=== PATIENT | male | born 1985 | race Caucasian/White ===

== ENCOUNTER 2017-11-07 08:08 | Observation (INO) | payer OTHER ==
[2017-11-07] MEDS ORDERED: Vistaril 50 MG/ML IM ONE (08:24)
[2017-11-07] MEDS ORDERED: Lactated Ringers 1,000 ML IV ONE ×4 (08:25→10:06)
[2017-11-07 08:47] LABS: VBG BASE EXCESS 0.5 (-2.0-2.0); VBG O2 SATURATION 78.7 (95-100); VBG POTASSIUM 3.4 (3.5-5.1); VBG pH 7.38 (7.32-7.42)
[2017-11-07 09:03] LABS: BASOPHIL % 0.2 % (0.0-0.4); Basophil (Absolute #) 0.02 (0-0.4); Eosinophil % 1.5 % (0.00-5.0); Eosinophil (Absolute #) 0.17 (0-0.5); Granulocyte Absolute (ANC) 9.21 (1.4-6.9); Granulocytes % 79.2 % (36.0-66.0); Hematocrit 38.1 % (42-50); Hemoglobin 13.3 gm/dl (12.5-18.0); Lymphocyte (Absolute #) 1.57 (1.0-4.6); Lymphocytes % 13.5 % (24.0-44.0); Mean Cell Volume 83.9 fl (78-100); Mean Corpuscular Hemoglobin 29.3 pg (26-32); Mean Corpuscular Hgb Concent. 34.9 g/dl (32-36); Mean Platelet Volume 9.6 fl (6-9.5); Monocyte (Absolute #) 0.65 (0.0-1.3); Monocytes % 5.6 % (0.0-12.0); Platelet Count 267 K/mm3 (150-450); Red Blood Count 4.54 M/mm3 (4.1-5.6); Red Cell Distribution Width 12.5 % (11.5-14.0); White Blood Count 11.6 K/mm3 (4.0-10.5)
[2017-11-07] MEDS ORDERED: VISTARIL 100MG/2ML IM ONE (09:09)
[2017-11-07 09:28] LABS: ALBUMIN 4.7 g/dl (3.5-5.0); ALKALINE PHOSPHATASE 116 U/L (38-126); ANION GAP 16.8 MEQ/L; BLOOD UREA NITROGEN 20 mg/dl (9-20); CHLORIDE 104 mEq/L (98-107); CK-Creatinine Phosphokinase 377 U/L (55-170); Calcium 9.5 mg/dl (8.4-10.2); Carbon Dioxide 24 mmol/L (22-30); Creatinine 1 0.59 mg/dl (0.66-1.25); Glucose 147 mg/dL (74-106); Potassium 3.6 mmol/L (3.5-5.1); SGOT/AST 70 U/L (17-59); SGPT/ALT 29 U/L (0-50); SODIUM 141 mmol/L (137-145); Total Protein 7.8 mg/dl (6.3-8.2)
[2017-11-07 09:29] LABS: SALICYLATE < 1.0 mg/dl (20-30)
[2017-11-07 09:35] LABS: ACETAMINOPHEN < 10 ug/ml (10-30); ETHYL ALCOHOL < 10 MG/DL (10-50)
[2017-11-07] MEDS ORDERED: Ativan 2 MG/1 ML VIAL ONE ×2 (09:49→10:17)
[2017-11-07] MEDS ORDERED: Ativan 2 MG/1 ML VIAL IV ONE ×2 (09:49→10:15)
[2017-11-07] MEDS ORDERED: Geodon 20 MG INJ IM ONE ×2 (10:14→10:17)
--- NOTE | 2017-11-07 10:28 | ERPHSYRPT ---
- History of Present Illness Time Seen by Provider: 11/07/17 08:13 Source: patient, police Patient Subjective Stated Complaint: ISP brought patient to ED for medical clearance, patient is anxious, agitated, moving constantly, speaking fast Triage Nursing Assessment: pt to er with ISP dominicgloria, here for medical clearance , pt is agitated, anxiuos, constantly moving around in the bed, answers questions appropriately but with quick short sentences, speech rushed Physician History: CC: medical evaluation for police HX: 32 y/o patient of Dr Solis reports he takes buprenorphine, adderall, and paxil. He arrived at a police scene in dry pan feeder hours and appeared to be intoxicated. He denies overdose. He denies acts or thoughts of self harm. Police concerned as he appeared to be intoxicated. Pt denies other symptoms. 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 Timing/Duration: today Severity: moderate Allergies/Adverse Reactions: lidocaine Allergy (Unknown, Verified 11/07/17 08:22) Hives Home Medications: Buprenorphine HCl/Naloxone HCl [Buprenorphin-Naloxon 8-2 mg Sl] 11/07/17 [ History] Dextroamphetamine/Amphetamine [Adderall 10 mg Tablet] 11/07/17 [History] Paroxetine HCl [Paxil] 11/07/17 [History] Hx Tetanus, Diphtheria Vaccination/Date Given: No Hx Influenza Vaccination/Date Given: No Hx Pneumococcal Vaccination/Date Given: No Immunizations Up to Date: No - Review of Systems Constitutional: No Fever, No Chills Eyes: No Symptoms Ears, Nose, & Throat: Nose Congestion Respiratory: No Cough, No Dyspnea Cardiac: No Chest Pain, No Syncope Abdominal/Gastrointestinal: No Abdominal Pain, No Nausea, No Vomiting, No Diarrhea Genitourinary Symptoms: No Dysuria Skin: No Rash Neurological: No Focal Weakness, No Headache, No Parasthesia Psychological: No Suicidal Ideations All Other Systems: Reviewed and Negative - Past Medical History Neurological History: No Pertinent History ENT History: No Pertinent History Cardiac History: No Pertinent History Respiratory History: No Pertinent History Endocrine Medical History: No Pertinent History Musculoskeletal History: No Pertinent History GI Medical History: No Pertinent History History: No Pertinent History Psycho-Social History: Anxiety, Attention Deficit Disorder, Depression, Other Male Reproductive Disorders: No Pertinent History Other Medical History: hx of opioid addiction, currently prescribed bupenorphine - Past Surgical History Past Surgical History: No - Social History Smoking Status: Current every day smoker How long have you smoked: years Exposure to second hand smoke: Yes Drug Use: narcotics Patient Lives Alone: Yes - Nursing Vital Signs Nursing Vital Signs: Initial Vital Signs Temperature 98.2 F 11/07/17 08:13 Pulse Rate 122 H 11/07/17 08:13 Respiratory Rate 26 H 11/07/17 08:13 Blood Pressure 212/120 11/07/17 08:13 O2 Sat by Pulse Oximetry 98 11/07/17 08:13 Pain Scale Pain Intensity 0 - Physical Exam General Appearance: alert, other (arrived ambulatory, anxious affect, jittery, oriented) Eye Exam: PERRL/EOMI Ears, Nose, Throat Exam: moist mucous membranes, other (nasal congestion) Neck Exam: normal inspection, non-tender, supple Respiratory Exam: normal breath sounds Cardiovascular Exam: regular rate/rhythm, tachycardia, No murmur Gastrointestinal/Abdomen Exam: soft, No tenderness, No distention Back Exam: normal inspection Extremity Exam: normal inspection, normal range of motion Neurologic Exam: alert, oriented x 3, pitch worker II-XII nml as tested, sensation nml, other (anxious, intermittently rapid speech, oriented and answers all questions appropriately), No motor deficits Skin Exam: warm, dry, No rash SpO2 Interpretation: normal SpO2: 98 Oxygen Delivery: Room Air - Course Nursing assessment & vital signs reviewed: Yes EKG Interpreted by Me: RATE (97), Sinus Rhythm, NORMAL AXIS, NORMAL INTERVALS ( QTc 450), Right Bundle Branch Block (incomplete), Non-specific ST Changes - Radiology Exams cxr X-ray Interpretation: Teleradiologist Report (nonacute hyperinflated chest) Ordered Tests: Active Orders 24 hr Category Date Time Status Health Social Work Professor STAT Care 11/07/17 08:24 Active EKG-ER Only STAT Care 11/07/17 08:24 Active Good [Catheter-Kenney Good] STAT Care 11/07/17 11:31 Active IV Insertion STAT Care 11/07/17 08:24 Active Pulse Oximetry (ED) STAT Care 11/07/17 08:24 Active ACETAMINOPHEN Stat Lab 11/07/17 08:45 Completed CBC W DIFF Stat Lab 11/07/17 08:45 Completed CK-Creatinine Phosphokinase Stat Lab 11/07/17 08:45 Completed CMP Stat Lab 11/07/17 08:45 Completed ETHYL ALCOHOL Stat Lab 11/07/17 08:45 Completed SALICYLATE Stat Lab 11/07/17 08:45 Completed TROPONIN Q3H Lab 11/07/17 09:30 Completed TROPONIN Q3H Lab 11/07/17 12:30 Ordered TROPONIN Q3H Lab 11/07/17 15:30 Ordered TROPONIN Q3H Lab 11/07/17 18:30 Ordered TROPONIN Q3H Lab 11/07/17 21:30 Ordered UA W/RFX UR CULTURE Stat Lab 11/07/17 08:24 Ordered Urine Triage Profile Stat Lab 11/07/17 08:24 Ordered VENOUS BLOOD GAS Stat Lab 11/07/17 08:24 Completed Medication Summary Discontinued Medications Generic Name Dose Route Start Last Admin Trade Name Freq PRN Reason Stop Dose Admin Hydroxyzine HCl 50 mg 11/07/17 08:24 11/07/17 09:58 Vistaril 50 Mg/Ml IM 11/07/17 08:25 Not Given STAT ONE Hydroxyzine HCl Confirm 11/07/17 09:09 Vistaril 100mg/2ml Administered 11/07/17 09:10 Dose 100 mg IM .STK-MED ONE Lactated Ringer's 1,000 mls @ 999 mls/hr 11/07/17 08:25 11/07/17 09:55 Lactated Ringers IV 11/07/17 09:25 999 mls/hr .Q1H1M ONE Administration Lactated Ringer's Confirm 11/07/17 08:57 Lactated Ringers Administered 11/07/17 08:58 Dose 1,000 mls @ ud IV .STK-MED ONE Lactated Ringer's 1,000 mls @ 999 mls/hr 11/07/17 10:04 11/07/17 10:08 Lactated Ringers IV 11/07/17 11:04 999 mls/hr .Q1H1M ONE Administration Lactated Ringer's Confirm 11/07/17 10:06 Lactated Ringers Administered 11/07/17 10:07 Dose 1,000 mls @ ud IV .STK-MED ONE Lorazepam 2 mg 11/07/17 09:49 11/07/17 09:51 Ativan 2 Mg/1 Ml Vial IV 11/07/17 09:50 2 mg STAT ONE Administration Lorazepam Confirm 11/07/17 09:49 Ativan 2 Mg/1 Ml Vial Administered 11/07/17 09:50 Dose 2 mg .ROUTE .STK-MED ONE Lorazepam 2 mg 11/07/17 10:15 11/07/17 10:28 Ativan 2 Mg/1 Ml Vial IV 11/07/17 10:16 2 mg STAT ONE Administration Lorazepam Confirm 11/07/17 10:17 Ativan 2 Mg/1 Ml Vial Administered 11/07/17 10:18 Dose 2 mg .ROUTE .STK-MED ONE Ziprasidone 10 mg 11/07/17 10:14 11/07/17 10:27 Geodon 20 Mg Inj IM 11/07/17 10:15 10 mg STAT ONE Administration Ziprasidone Confirm 11/07/17 10:17 Geodon 20 Mg Inj Administered 11/07/17 10:18 Dose 20 mg IM .STK-MED ONE Lab/Rad Data: Laboratory Result Diagrams 11/07/17 08:45 11/07/17 08:45 Laboratory Results 11/07/17 11/07/17 11/07/17 Range/Units 09:30 08:45 08:45 WBC 11.6 H (4.0-10.5) K/mm3 RBC 4.54 (4.1-5.6) M/mm3 Hgb 13.3 (12.5-18.0) gm/dl Hct 38.1 L (42-50) % MCV 83.9 (78-100) fl MCH 29.3 (26-32) pg MCHC 34.9 (32-36) g/dl RDW 12.5 (11.5-14.0) % Plt Count 267 (150-450) K/mm3 MPV 9.6 H (6-9.5) fl Gran % 79.2 H (36.0-66.0) % Lymphocytes % 13.5 L (24.0-44.0) % Monocytes % 5.6 (0.0-12.0) % Eosinophils % 1.5 (0.00-5.0) % Basophils % 0.2 (0.0-0.4) % Basophils # 0.02 (0-0.4) VBG pH (7.32-7.42) VBG pCO2 at Pat Temp (42-55) mm/Hg VBG pO2 at Pat Temp (25-40) mm/Hg VBG HCO3 (22-28) meq/L VBG O2 Sat (Ike) (95-100) VBG Base Excess (-2.0-2.0) VBG Hemoglobin VBG Carboxyhemoglobin (0.0-6.9) % T HGB POC Potassium (3.5-5.1) Sodium 141 (137-145) mmol/L Potassium 3.6 (3.5-5.1) mmol/L Chloride 104 (98-107) mEq/L Carbon Dioxide 24 (22-30) mmol/L Anion Gap 16.8 MEQ/L BUN 20 (9-20) mg/dl Creatinine 0.59 L (0.66-1.25) mg/dl Estimated GFR > 60 ML/MIN Glucose 147 H (74-106) mg/dL Calcium 9.5 (8.4-10.2) mg/dl Total Bilirubin 0.40 (0.2-1.3) mg/d? AST 70 H (17-59) U/L ALT 29 (0-50) U/L Alkaline Phosphatase 116 (38-126) U/L Creatine Kinase 377 H (55-170) U/L Troponin I < 0.012 (0.000-0.034) ng/ml Serum Total Protein 7.8 (6.3-8.2) mg/dl Albumin 4.7 (3.5-5.0) g/dl Salicylates < 1.0 L* (20-30) mg/dl Acetaminophen < 10 L (10-30) ug/ml Ethyl Alcohol < 10 L (10-50) MG/DL 11/07/17 Range/Units 08:24 WBC (4.0-10.5) K/mm3 RBC (4.1-5.6) M/mm3 Hgb (12.5-18.0) gm/dl Hct (42-50) % MCV (78-100) fl MCH (26-32) pg MCHC (32-36) g/dl RDW (11.5-14.0) % Plt Count (150-450) K/mm3 MPV (6-9.5) fl Gran % (36.0-66.0) % Lymphocytes % (24.0-44.0) % Monocytes % (0.0-12.0) % Eosinophils % (0.00-5.0) % Basophils % (0.0-0.4) % Basophils # (0-0.4) VBG pH 7.38 (7.32-7.42) VBG pCO2 at Pat Temp 44 (42-55) mm/Hg VBG pO2 at Pat Temp 38 (25-40) mm/Hg VBG HCO3 26.0 (22-28) meq/L VBG O2 Sat (Ike) 78.7 L (95-100) VBG Base Excess 0.5 (-2.0-2.0) VBG Hemoglobin 14.0 VBG Carboxyhemoglobin 2.0 (0.0-6.9) % T HGB POC Potassium 3.4 L (3.5-5.1) Sodium (137-145) mmol/L Potassium (3.5-5.1) mmol/L Chloride (98-107) mEq/L Carbon Dioxide (22-30) mmol/L Anion Gap MEQ/L BUN (9-20) mg/dl Creatinine (0.66-1.25) mg/dl Estimated GFR ML/MIN Glucose (74-106) mg/dL Calcium (8.4-10.2) mg/dl Total Bilirubin (0.2-1.3) mg/d? AST (17-59) U/L ALT (0-50) U/L Alkaline Phosphatase (38-126) U/L Creatine Kinase (55-170) U/L Troponin I (0.000-0.034) ng/ml Serum Total Protein (6.3-8.2) mg/dl Albumin (3.5-5.0) g/dl Salicylates (20-30) mg/dl Acetaminophen (10-30) ug/ml Ethyl Alcohol (10-50) MG/DL - Progress Progress Note: 11/07/17 10:28 He has been unable to produce urine. Nurses attempted cath without success. He is more tachycardic, hypertensive, and agitated. IV ativan and geodon and IVF given. He appears to have sympathomimetic intoxication/ingestion. 11/07/17 11:32 Pt more and more agitated. Hypertensive, tachycardic. Not febrile. Answers all questions. Some myotonic jerks. He has copious nasal secretions. He was given ativan X 2 and IM geodon. 2 L LR given. Good placed to make sure not in urine retention. Police placed on 24 hour immediate retirement. He is now sedate. On pulse ox, capnography, and classroom monitor. Called Dr Solis who will place in ICU observation. He appears to have substance overdose and possibly some degree of opioid withdrawal although he states he took his normal buprenorphine at 6AM today. Discussed with Dr.: Will Will see patient in: hospital (observation) Counseled pt/family regarding: drug and/or alcohol abuse, lab results, diagnosis , need for follow-up, rad results - Departure Time of Disposition: 11:35 Departure Disposition: Observation (ICU Dr Solis) Clinical Impression: Overdose of sympathomimetic agent, Opioid withdrawal, acute delerium Condition: Serious Critical Care Time: Yes Critical Care Time(excluding separately billable procedures): 30-74 minutes Referrals: GO SOLIS [Primary Care Provider] -
[2017-11-07 13:16] LABS: Appearance CLEAR (CLEAR); Bacteria FEW /HPF (NEGATIVE); Bilirubin NEGATIVE (NEGATIVE); Blood NEGATIVE Ery/ul (0-5); Glucose 100 mg/dL (NEGATIVE); Ketones SMALL (NEGATIVE); Leukocyte Esterase TRACE (NEGATIVE); Mucus MODERATE /HPF (NEGATIVE); Nitrite NEGATIVE (NEGATIVE); Protein,Urine Dip NEGATIVE (Negative); Urobilinogen NORMAL mg/dL (0-1); WBC 0-2 /HPF (0-5)
[2017-11-07] MEDS: Dextrose 5%-Lr IV Solution 1000 ML 1,000 ML IV SCH ×2 (13:18→21:41)
[2017-11-07] MEDS ORDERED: Ativan 2 MG/1 ML VIAL IV PRN (14:57)
[2017-11-07] MEDS ORDERED: TYLENOL 325 MG PO PRN (14:57)
[2017-11-07 15:29] LABS: Amphetamine,Urine POSITIVE (NEGATIVE); Barbiturate,Urine NEGATIVE (NEGATIVE); Benzodiazepine,Urine NEGATIVE (NEGATIVE); Cocaine,Urine NEGATIVE (NEGATIVE); Methadone,Urine NEGATIVE (NEGATIVE); Opiate,Urine NEGATIVE (NEGATIVE); PCP,Urine NEGATIVE (NEGATIVE); THC,Urine POSITIVE (NEGATIVE)
[2017-11-07 19:20] LABS: ALBUMIN 4.1 g/dl (3.5-5.0); ALKALINE PHOSPHATASE 95 U/L (38-126); ANION GAP 12.1 MEQ/L; BLOOD UREA NITROGEN 11 mg/dl (9-20); CHLORIDE 103 mEq/L (98-107); Carbon Dioxide 28 mmol/L (22-30); Glucose 104 mg/dL (74-106); Potassium 4.2 mmol/L (3.5-5.1); SGOT/AST 62 U/L (17-59); SGPT/ALT 24 U/L (0-50); SODIUM 140 mmol/L (137-145); Total Protein 6.8 mg/dl (6.3-8.2)
[2017-11-08] MEDS ORDERED: NON-FORMULARY ITEM (Paroxetine Hcl [Paxil] 40 MG) PO SCH (10:00)
[2017-11-08] MEDS ORDERED: Paxil 20 MG PO SCH (10:00)
[2017-11-08] MEDS ORDERED: Nicoderm CQ 21 MG TOP SCH (10:45)
[2017-11-08 12:43] VITALS: BP 142/85; PULSE 94; O2SAT 98
--- NOTE | 2017-11-09 13:58 | SSS ---
DISCHARGE DIAGNOSIS: AMPHETAMINE OVERDOSE. HISTORY: The patient is a 32 year-old white male patient who has been taking Adderall for attention deficit disorder for his work. Apparently he has been having trouble with abusing his medications. He made a recent trip to [place] where he saw his mother and he apparently ran out of his medications. His mom reported that he has been getting his medications and taking several of them too quickly during the month and running out of them and having none at the end of the month. The patient had made a recent trip to [place] and has been back recently, refilled his medications. There were apparently around 20 pills missing from his bottle from where he should be at this time. He apparently had been out and about and had arrowhead hunting with a friend but apparently had saw a endoscopy technician car for some reason pulled up to him to talk to him and it was apparent that he was somewhat incoherent. He failed the field sobriety test and was brought into the emergency room. In the emergency room the patient was having myoclonic jerks and flight of ideas. He was sedated with Ativan and Geodon. He was placed in ICU for observation and management otherwise. The police did place a 24 hour hold on him for legal aspects from law enforcement view point. PAST MEDICAL/SURGICAL HISTORY: Significant for attention deficit disorder and apparently chronic pain. He has history of opioid addiction and is getting an orphaning from another physician up in [place]. He has no other medical problems. MEDICATIONS: He is on Paxil otherwise at 20 mg a day for depression. He has had no significant medical problems otherwise. ALLERGIES: LIDOCAINE. PHYSICAL EXAMINATION: Currently revealed a well nourished, well developed 32 year-old white male patient in no obvious distress. HEENT: Normocephalic, atraumatic. Pupils equal round reactive to light. Extraocular movements intact. Oropharynx is pink and moist. NECK: Supple without lymphadenopathy, thyromegaly or JVD. CHEST: Clear to auscultation. HEART: Regular rate and rhythm, somewhat tachycardic. ABDOMEN: Soft without palpable masses. EXTREMITIES: Without clubbing, cyanosis or edema. NEUROLOGIC: The patient is alert and oriented x3. He is responding coherently. He has no obvious focal deficits. HOSPITAL COURSE: The patient was admitted to the ICU where initially he was sedated. He did have issues with being fairly hypertensive being up to 212/120 at one point but then with sedation down to 90/53. His pulse rate ranged from 135 down to 67. His saturations have been good. He has been afebrile. Laboratory studies revealed troponin less than 0.012. CPK was somewhat elevated at 277. Metabolic panel was essentially otherwise normal with sugar being 104. He had urine drug screen which was positive for THC and amphetamine. His UA was otherwise normal. With the patient being back to normal at this point in time we will obtain [facility] consultation. He may need placement for rehab. We will follow their instructions on this otherwise he is medically stable and ready for discharge to home or to the authorities for incarceration depending on how they wish to pursue this from their aspect. I have asked him to see me in the office in one week for follow up. We will discontinue his Adderall and maintain his Paxil otherwise.
== END 2017-11-08 13:40 ==
LOC: ED 08:08 → ICU 12:30 → UNDOADMOB 12:45 → ICU 12:45
PROVIDERS: ADMIT Family Medicine; ATTEND Family Medicine
DX: T43.621A Poisoning by amphetamines, accidental (unintentional), initial encounter (principal); F98.8 Other specified behavioral and emotional disorders with onset usually occurring in childhood and adolescence; F32.9 Major depressive disorder, single episode, unspecified; Z79.899 Other long term (current) drug therapy
CPT/HCPCS: 36000; 36415; 51702; 80053; 80307; 81000; 82550; 82805; 84484; 85025; 87086; 90791; 93005; 93041; 93268; 94760; 96360; 96361; 96372; 96374; 96375; 99285; G0378; G0480; G0481; J2060; J3410; J3486; P9612; Q3014; A9270-GY

== ENCOUNTER 2017-11-16 14:33 | Observation (INO) | payer OTHER ==
[2017-11-16] MEDS ORDERED: Geodon 20 MG INJ IM ONE ×2 (15:03→15:08)
[2017-11-16] MEDS ORDERED: Sodium Chloride 0.9% 1000 ML 1,000 ML IV STA (15:03)
[2017-11-16] MEDS ORDERED: VERSED 5 MG/5 ML IV ONE (15:04)
[2017-11-16] MEDS ORDERED: VERSED 5 MG/5 ML ONE (15:08)
[2017-11-16] MEDS ORDERED: Sodium Chloride 0.9% 1000 ML 1,000 ML ONE (15:09)
[2017-11-16 15:10] LABS: BASOPHIL % 0.2 % (0.0-0.4); Basophil (Absolute #) 0.02 (0-0.4); Eosinophil % 3.3 % (0.00-5.0); Eosinophil (Absolute #) 0.37 (0-0.5); Granulocytes % 69.8 % (36.0-66.0); Hematocrit 39.8 % (42-50); Hemoglobin 13.8 gm/dl (12.5-18.0); Lymphocyte (Absolute #) 2.03 (1.0-4.6); Mean Cell Volume 84.5 fl (78-100); Mean Corpuscular Hemoglobin 29.3 pg (26-32); Mean Corpuscular Hgb Concent. 34.7 g/dl (32-36); Mean Platelet Volume 9.7 fl (6-9.5); Monocyte (Absolute #) 0.98 (0.0-1.3); Monocytes % 8.7 % (0.0-12.0); Platelet Count 265 K/mm3 (150-450); Red Blood Count 4.71 M/mm3 (4.1-5.6); Red Cell Distribution Width 12.6 % (11.5-14.0); White Blood Count 11.3 K/mm3 (4.0-10.5)
[2017-11-16 15:30] LABS: ALBUMIN 4.7 g/dL (3.5-5.0); ALKALINE PHOSPHATASE 112 U/L (38-126); ANION GAP 15.4 MEQ/L (5-15); BLOOD UREA NITROGEN 17 mg/dL (9-20); CHLORIDE 100 mmol/L (98-107); Calcium 9.2 mg/dL (8.4-10.2); Carbon Dioxide 26 mmol/L (22-30); Creatinine 1 0.54 mg/dL (0.66-1.25); Glucose 108 mg/dL (74-106); Potassium 3.9 mmol/L (3.5-5.1); SGOT/AST 65 U/L (17-59); SGPT/ALT 23 U/L (0-50); SODIUM 137 mmol/L (137-145); Total Protein 7.7 g/dL (6.3-8.2)
[2017-11-16 15:31] LABS: ETHYL ALCOHOL < 10 mg/dL (0-9)
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
[2017-11-16 16:22] LABS: Appearance HAZY (CLEAR); Bilirubin NEGATIVE (NEGATIVE); Blood NEGATIVE Ery/ul (0-5); Glucose NEGATIVE (NEGATIVE); Ketones MODERATE (NEGATIVE); Leukocyte Esterase NEGATIVE (NEGATIVE); Nitrite NEGATIVE (NEGATIVE); Protein,Urine Dip 100 (Negative); Specific Gravity 1.025 (1.005-1.025); Urobilinogen NORMAL mg/dL (0-1)
[2017-11-16 16:23] LABS: ACETAMINOPHEN < 10 ug/ml (10-30); SALICYLATE < 1.0 mg/dL (2-20)
[2017-11-16 16:31] LABS: Bacteria MODERATE /HPF (NEGATIVE); Epithelial Cells FEW /HPF (FEW); Mucus MODERATE /HPF (NEGATIVE); WBC 0-2 /HPF (0-5)
[2017-11-16 16:34] LABS: Barbiturate,Urine NEGATIVE (NEGATIVE); Benzodiazepine,Urine POSITIVE (NEGATIVE); Cocaine,Urine NEGATIVE (NEGATIVE); Methadone,Urine NEGATIVE (NEGATIVE); Opiate,Urine NEGATIVE (NEGATIVE); PCP,Urine NEGATIVE (NEGATIVE); THC,Urine POSITIVE (NEGATIVE)
[2017-11-16] MEDS ORDERED: Versed 2 MG/2 ML Injection IV PRN (17:15)
[2017-11-16 17:32] LABS: Amphetamine,Urine POSITIVE (NEGATIVE)
[2017-11-16] MEDS: Dextrose 5%-Lr IV Solution 1000 ML 1,000 ML IV SCH (17:36)
[2017-11-16] MEDS ORDERED: Versed 2 MG/2 ML Injection ONE (20:53)
[2017-11-17] MEDS: Dextrose 5%-Lr IV Solution 1000 ML 1,000 ML IV SCH ×2 (03:23→17:12)
[2017-11-17] MEDS ORDERED: VERSED 5 MG/5 ML IV PRN (06:24)
--- NOTE | 2017-11-17 08:43 | HP ---
CHIEF COMPLAINT: Suicidal ideation. HISTORY OF PRESENT ILLNESS: The patient is a 32 year-old white male patient who has been having melt downs recently. He had taken a lot of amphetamine a couple of weeks ago and found himself having flight of ideas and was brought by the authorities. He required Ativan to calm him down and Geodon. He had admission to the hospital and [facility] consultation. At the time of discharge he had set up outpatient evaluations with [facility] which he has not done presently. Apparently in the last couple of days he has had more melt downs and he apparently told his family that he was going to commit suicide and he would have a gun in his possession loaded and in his hand which had to be taken away by his father and unloaded. He was brought in under emergency fci. This morning the patient is cooperative and reports that he was just making noise and that he does not intend to harm himself at the present time. PAST MEDICAL/SURGICAL HISTORY: Anxiety, depression, attention deficit disorder for which he was receiving Adderall. He had been stable with this over the past year until just recently. The patient is otherwise healthy and has no medical problems otherwise. MEDICATIONS: He is currently on no prescription medications. However, his urine drug screen was positive for benzodiazepines, amphetamines and THC. ALLERGIES: LIDOCAINE. PHYSICAL EXAMINATION: Revealed a well nourished, well developed 32 year-old white male patient in no distress. He easily arouses to verbal stimuli. He is afebrile with stable vital signs. Slightly tachycardic. HEENT: Normocephalic, atraumatic. Pupils equal round reactive to light. Extraocular movements intact. Oropharynx is pink and moist. NECK: Supple without lymphadenopathy, thyromegaly or JVD. CHEST: Clear to auscultation with good air movement bilaterally. HEART: Mildly tachycardic but regular rhythm and no murmurs, rubs or gallops heard. ABDOMEN: Soft. No palpable masses. EXTREMITIES: Without clubbing, cyanosis or edema. NEUROLOGIC: The patient is alert and oriented x3. LAB DATA AND TESTS: Showed glucose of 108, BUN 17, creatinine 0.54. Electrolytes were normal. Liver enzymes were essentially normal. Acetaminophen, salicylates and ETOH were essentially all negative. Urine drug screen however was positive for amphetamines, THC and benzodiazepines. UA was essentially normal. CBC showed slight elevation of white blood cell count of 11,300 with no significant left shift. Platelets were normal. ASSESSMENT: A patient with suicidal ideation apparently decompensating here recently mentally. We will obtain a [facility] consultation. I have discussed with the patient about possible inpatient stay which he is against although he is relatively cooperative otherwise and with discussion may electively agree to admission to an inpatient facility if required. He is medically stable for discharge otherwise.
[2017-11-17 14:09] LABS: Hematocrit 35.7 % (42-50); Hemoglobin 12.2 gm/dl (12.5-18.0); Mean Corpuscular Hgb Concent. 34.2 g/dl (32-36); Mean Platelet Volume 9.6 fl (6-9.5); Platelet Count 227 K/mm3 (150-450); Red Blood Count 4.15 M/mm3 (4.1-5.6); Red Cell Distribution Width 12.8 % (11.5-14.0); White Blood Count 5.3 K/mm3 (4.0-10.5)
[2017-11-17 14:11] LABS: Mean Corpuscular Hemoglobin 29.3 pg (26-32)
[2017-11-17 14:50] LABS: BLOOD UREA NITROGEN 10 mg/dL (9-20); CHLORIDE 104 mmol/L (98-107); Calcium 8.5 mg/dL (8.4-10.2); Carbon Dioxide 29 mmol/L (22-30); Creatinine 1 0.46 mg/dL (0.66-1.25); Glucose 114 mg/dL (74-106); Potassium 3.8 mmol/L (3.5-5.1); SODIUM 140 mmol/L (137-145)
[2017-11-17] MEDS: Paxil 20 MG PO SCH (18:11)
[2017-11-17] MEDS ORDERED: Nicoderm CQ 21 MG TOP SCH (22:30)
[2017-11-18] MEDS: Dextrose 5%-Lr IV Solution 1000 ML 1,000 ML IV SCH (03:21)
[2017-11-18] MEDS ORDERED: BUPRENORPHINE HCL 8 MG SL SCH (10:00)
--- NOTE | 2017-11-18 10:53 | PCM.DS ---
Discharge Summary Date of Admission: 11/16/17 17:13 Date of Discharge: 11/18/2017 Admitting Physician: GO CARRILLO Primary Care Provider: GO CARRILLO Allergies Allergies lidocaine Allergy (Unknown, Verified 11/16/17 14:47) [facility] Summary - Hospital Course Hospital Course: GERI RODRIGUEZ he presented as an emergency shelter by the police after being suicidal telling his family he wanted to kill himself and having a loaded gun in his hand which his father took away. He reports to me this was due to him taking xanax and that is better now. The previous week he had an ER visit for intoxication and observed on the floor and then sent to assisted briefly. he did not follow up as an outpatient with psychiatry as advised. He has a history of drug abuse an is currently on suboxone therapy he sees Dr. Deann Rodriguez in [place] for this. He was admitted to ICU. [facility] recommends inpatient admission for suicidal ideation and this is very appropriate. He had emergency shelter signed but he is cooperative and pleasant here and agrees to go for help. He does not have any acute evidence of withdrawal symptoms here he did apparently take a dose of suboxone he had in his pocket after he arrived in the hospital. But has otherwise not had his suboxone or any narcotics here. He was continued on his paxil and given an nicotine patch and will go for inpatient psychiatric evaluation and treatment. He was originally accepted to [facility] but for some reason that fell through yesterday evening and he is now being accepted by [facility]. - Vitals & Intake/Output Vital Signs: Vital Signs Temperature 98.5 F 11/18/17 08:00 Pulse Rate 77 11/18/17 08:00 Respiratory Rate 21 11/18/17 08:00 Blood Pressure 121/79 11/18/17 08:00 O2 Sat by Pulse Oximetry 100 11/18/17 08:00 Intake & Output: Intake & Output 11/15/17 11/16/17 11/17/17 11/18/17 11:59 11:59 11:59 11:59 Intake Total 1240 3224 Output Total 600 Balance 1240 2624 Weight 90.5 kg 92.1 kg - Lab Result Diagrams: 11/17/17 13:30 11/17/17 14:00 Lab Results-Last 24 Hrs: Lab Results-Last 24 Hours 11/17/17 11/17/17 Range/Units 13:30 14:00 WBC 5.3 (4.0-10.5) K/mm3 RBC 4.15 (4.1-5.6) M/mm3 Hgb 12.2 L (12.5-18.0) gm/dl Hct 35.7 L (42-50) % MCV 86.0 (78-100) fl MCH 29.3 (26-32) pg MCHC 34.2 (32-36) g/dl RDW 12.8 (11.5-14.0) % Plt Count 227 (150-450) K/mm3 MPV 9.6 H (6-9.5) fl Sodium 140 (137-145) mmol/L Potassium 3.8 (3.5-5.1) mmol/L Chloride 104 (98-107) mmol/L Carbon Dioxide 29 (22-30) mmol/L Anion Gap 11.0 (5-15) MEQ/L BUN 10 (9-20) mg/dL Creatinine 0.46 L (0.66-1.25) mg/dL Estimated GFR > 60 ML/MIN Glucose 114 H (74-106) mg/dL Calcium 8.5 (8.4-10.2) mg/dL Discharge Exam General Appearance: no apparent distress, alert Neurologic Exam: alert, oriented x 3, cooperative, normal mood/affect, nml cerebellar function, sensation nml, No motor deficits Skin Exam: normal color, warm, dry Eye Exam: PERRL, EOMI, eyes nml inspection Ears, Nose, Throat Exam: normal ENT inspection, pharynx normal, moist mucous membranes Neck Exam: normal inspection, non-tender, supple, full range of motion Respiratory Exam: normal breath sounds, lungs clear, No respiratory distress Cardiovascular Exam: regular rate/rhythm, normal heart sounds Gastrointestinal/Abdomen Exam: soft, No tenderness, No mass Extremity Exam: normal inspection, normal range of motion Back Exam: normal inspection, normal range of motion, No CVA tenderness, No vertebral tenderness Male Genitalia Exam: deferred Rectal Exam: deferred Final Diagnosis/Problem List - Final Discharge Diagnosis/Problem (1) Suicide ideation Current Visit: Yes Status: Acute (2) Intoxication by drug Current Visit: Yes Status: Acute (3) Polysubstance abuse Current Visit: Yes Status: Acute - Discharge Discharge Date: 11/18/17 Disposition: XFER OTHER Condition: Fair Prescriptions: No Action Dextroamphetamine/Amphetamine [Amphetamine Salts 30 mg Tablet] 30 mg PO BID Buprenorphine HCl 8 mg SL BID Paroxetine HCl [Paxil] 40 mg PO DAILY Forms: Ambulance Transport Record, Transfer Record Inter-Agency
[2017-11-18] MEDS: Paxil 20 MG PO SCH (12:04)
[2017-11-18 12:24] VITALS: O2SAT 98
[2017-11-18] MEDS ORDERED: PATIENT OWN MEDICATION SL SCH (14:00)
[2017-11-18 16:27] VITALS: BP 135/62; PULSE 64
== END 2017-11-18 16:15 | disposition short-term general hospital (02) ==
LOC: ED 14:33 → ICU 17:13
PROVIDERS: ADMIT Family Medicine; ATTEND Family Medicine
DX: R45.851 Suicidal ideations (principal); F19.10 Other psychoactive substance abuse, uncomplicated; T50.904A Poisoning by unspecified drugs, medicaments and biological substances, undetermined, initial encounter
CPT/HCPCS: 36000; 36415; 80048; 80053; 80307; 81000; 85025; 85027; 87086; 90791; 93005; 96360; 99285; G0378; G0480; G0481; J2250; J3486; P9612; Q3014; A9270-GY

== ENCOUNTER 2019-05-16 22:50 | Emergency (ER) | payer OTHER ==
--- NOTE | 2019-05-16 23:07 | ERPHSYRPT ---
- History of Present Illness Time Seen by Provider: 05/16/19 22:55 Source: patient Exam Limitations: no limitations Physician History: Patient has a history of bipolar disorder with past psychiatric admission who is brought into the emergency department by police after getting into an altercation with his mother's farzaneh and his grandfather after waking up from sleep walking. Patient wanted to leave the home after the altercation, but they procured his keys, so he grabbed a pair of scissors and threatened to kill himself. Police was then called and he was brought into the emergency department. Timing/Duration: today Severity of Symptoms-Max: severe Severity of Symptoms-Current: mild Context related to: parent, living circumstances Suicidal thoughts: specific plan (stabbing himself in the chest) Associated Symptoms: agitated, anxiety, frustrated, suicidal ideation, No angry , No confused, No depressed, No hostile, No hallucinating, No impaired concentration, No ingestion, No injury, No insomnia, No paranoid Previous symptoms: same symptoms as today, no recent treatment Allergies/Adverse Reactions: lidocaine Allergy (Unknown, Verified 11/16/17 14:47) Hives Home Medications: Buprenorphine HCl 8 mg SL BID 11/07/17 [History] Dextroamphetamine/Amphetamine [Amphetamine Salts 30 mg Tablet] 30 mg PO BID 02/19 [History] Paroxetine HCl [Paxil] 40 mg PO DAILY 11/17/17 [History] Hx Tetanus, Diphtheria Vaccination/Date Given: No Hx Influenza Vaccination/Date Given: No Hx Pneumococcal Vaccination/Date Given: No - Past Medical History Pertinent Past Medical History: Yes Neurological History: No Pertinent History ENT History: No Pertinent History Cardiac History: No Pertinent History Respiratory History: No Pertinent History Endocrine Medical History: No Pertinent History Musculoskeletal History: No Pertinent History GI Medical History: No Pertinent History History: No Pertinent History Psycho-Social History: Anxiety, Attention Deficit Disorder, Bipolar, Depression , Other (oopioid use disorder) Male Reproductive Disorders: No Pertinent History Other Medical History: hx of opioid addiction, currently prescribed bupenorphine. ALL INFORMATION HERE FROM LAST VISIT, PT IS UNABLE TO ANSWER QUESTIONS - Past Surgical History Past Surgical History: No Other Surgical History: UNABLE TO ASSESS, PT SEDATED UPON ADMISSION - Social History Smoking Status: Unknown if ever smoked How long have you smoked: years Exposure to second hand smoke: Yes Drug Use: methamphetamines, narcotics Patient Lives Alone: Yes - Review of Systems Constitutional: No Fever, No Chills Eyes: No Eye Pain, No Vision Changes Ears, Nose, & Throat: No Symptoms, No Ear Pain, No Nose Pain, No Mouth Pain, No Loose Teeth, No Throat Swelling, No Painful Swallowing, No Stridor Respiratory: No Cough, No Dyspnea Cardiac: No Chest Pain, No Edema, No Syncope Abdominal/Gastrointestinal: No Abdominal Pain, No Nausea, No Vomiting, No Diarrhea Genitourinary Symptoms: No Dysuria Musculoskeletal: No Back Pain, No Neck Pain Skin: No Rash Neurological: No Dizziness, No Focal Weakness, No Sensory Changes Psychological: Suicidal Ideations, No Alcohol Abuse, No Homicidal Ideations, No Hallucinations, No Memory Loss Endocrine: No Symptoms Hematologic/Lymphatic: No Easy Bleeding, No Easy Bruising All Other Systems: Reviewed and Negative - Nursing Vital Signs Nursing Vital Signs: Initial Vital Signs Temperature 99.2 F 05/16/19 22:51 Pulse Rate 108 H 05/16/19 22:51 Respiratory Rate 20 05/16/19 22:51 Blood Pressure 152/99 05/16/19 22:51 O2 Sat by Pulse Oximetry 97 05/16/19 22:51 Pain Scale Pain Intensity 0 - Physical Exam General Appearance: mild distress, anxiety Eyes, Ears, Nose, Throat Exam: normal ENT inspection, TMs normal, pharynx normal , moist mucous membranes Neck Exam: normal inspection, non-tender, supple, full range of motion, No Brudzinski, No Kernig's, No meningismus, No limited range of motion, No tenderness lateral, No tenderness midline Respiratory Exam: normal breath sounds, lungs clear, airway intact, No chest tenderness, No respiratory distress, No diminished breath sounds, No accessory muscle use, No prolonged expirations, No crackles/rales, No rhonchi, No wheezing , No stridor Cardiovascular Exam: regular rate/rhythm, normal heart sounds, normal peripheral pulses, capillary refill <2 sec, No edema Gastrointestinal/Abdominal Exam: soft, No tenderness, No distention, No guarding , No rebound Extremities Exam: normal inspection, normal range of motion, No evidence of injury, No edema Peripheral Pulses: dorsalis-pedis (R): 2+, dorsalis-pedis (L): 2+ Current Suicidality: denies suicide plan Neurological Exam: alert, rolled glass crosscutter II-XII nml as tested, oriented x 3, anxious Appearance: appropriate appearance Behavior/Eye Contact/Speech: alert & cooperative, increased rate of speech, No belligerent Thoughts/Hallucinations: no apparent hallucination, flight of ideas, incoherent , No auditory hallucinations, No tactile hallucinations, No visual hallucinations Skin Exam: normal color, warm, dry, abrasion (bilateral lower legs; left volar forearm), No rash, No jaundice, No jaundice SpO2 Interpretation: normal O2 Delivery: Room Air - Course EKG Interpreted by Me: RATE (80), Sinus Rhythm, NORMAL AXIS, NORMAL INTERVALS, NORMAL QRS, NORMAL ST-T, Other (negative for any acute changes in comparison to EKG from 11/16/2017) Ordered Tests: Active Orders 24 hr Category Date Time Status EKG-ER Only STAT Care 05/16/19 23:11 Active IV Insertion STAT Care 05/16/19 23:11 Active ACETAMINOPHEN Stat Lab 05/16/19 23:40 Completed CBC W DIFF Stat Lab 05/16/19 23:40 Completed CMP Stat Lab 05/16/19 23:40 Completed ETHYL ALCOHOL Stat Lab 05/16/19 23:40 Completed SALICYLATE Stat Lab 05/16/19 23:40 Completed Medication Summary Discontinued Medications Generic Name Dose Route Start Last Admin Trade Name Jessica PRN Reason Stop Dose Admin Diphtheria/Tetanus/Acell Pertussis 0.5 ml 05/16/19 23:10 05/17/19 00:03 Adacel Vial IM 05/16/19 23:11 0.5 ml .ONCE ONE Administration Diphtheria/Tetanus/Acell Pertussis Confirm 05/17/19 00:00 Adacel Vial Administered 05/17/19 00:01 Dose 0.5 ml IM .STK-MED ONE Nicotine 21 mg 05/17/19 01:23 05/17/19 01:53 Nicoderm Cq 21 Mg TOP 05/17/19 01:24 21 mg STAT ONE Administration Lab/Rad Data: Laboratory Result Diagrams 05/16/19 23:40 05/16/19 23:40 Laboratory Results 05/16/19 05/16/19 05/16/19 Range/Units 23:40 23:40 00:05 WBC 9.1 (4.0-10.5) K/mm3 RBC 4.70 (4.1-5.6) M/mm3 Hgb 13.9 (12.5-18.0) gm/dl Hct 40.1 L (42-50) % MCV 85.3 (78-100) fl MCH 29.6 (26-32) pg MCHC 34.7 (32-36) g/dl RDW 12.6 (11.5-14.0) % Plt Count 236 (150-450) K/mm3 MPV 9.2 (6-9.5) fl Gran % 72.5 H (36.0-66.0) % Eos # (Auto) 0.53 H (0-0.5) Absolute Lymphs (auto) 1.28 (1.0-4.6) Absolute Monos (auto) 0.67 (0.0-1.3) Lymphocytes % 14.1 L (24.0-44.0) % Monocytes % 7.4 (0.0-12.0) % Eosinophils % 5.8 H (0.00-5.0) % Basophils % 0.2 (0.0-0.4) % Absolute Granulocytes 6.61 (1.4-6.9) Basophils # 0.02 (0-0.4) Sodium 138 (137-145) mmol/L Potassium 3.9 (3.5-5.1) mmol/L Chloride 104 (98-107) mmol/L Carbon Dioxide 27 (22-30) mmol/L Anion Gap 11.4 (5-15) MEQ/L BUN 16 (9-20) mg/dL Creatinine 0.51 L (0.66-1.25) mg/dL Estimated GFR > 60.0 ML/MIN Glucose 106 (74-106) mg/dL Calcium 9.0 (8.4-10.2) mg/dL Total Bilirubin 0.60 (0.2-1.3) mg/dL AST 83 H (17-59) U/L ALT 37 (0-50) U/L Alkaline Phosphatase 111 (38-126) U/L Serum Total Protein 7.6 (6.3-8.2) g/dL Albumin 4.3 (3.5-5.0) g/dL Urine Color (YELLOW) Urine Appearance (CLEAR) Urine pH (5-6) Ur Specific [place] (1.005-1.025) Urine Protein (Negative) Urine Ketones (NEGATIVE) Urine Blood (0-5) Hollis/ul Urine Nitrite (NEGATIVE) Urine Bilirubin (NEGATIVE) Urine Urobilinogen (0-1) mg/dL Ur Leukocyte Esterase (NEGATIVE) Urine WBC (Auto) (0-5) /HPF Urine RBC (Auto) (0-2) /HPF U Hyaline Cast (Auto) (0-2) /LPF U Epithel Cells (Auto) (FEW) /HPF Urine Bacteria (Auto) (NEGATIVE) /HPF Urine Mucus (Auto) (NEGATIVE) /HPF Urine Culture Reflexed (NO) Urine Glucose (NEGATIVE) mg/dL Salicylates < 1.0 L (2-20) mg/dL Urine Opiates Level NEGATIVE (NEGATIVE) Ur Methadone NEGATIVE (NEGATIVE) Acetaminophen < 10 L (10-30) ug/ml Urine Barbiturates NEGATIVE (NEGATIVE) Ur Phencyclidine (PCP) NEGATIVE (NEGATIVE) Urine Amphetamine POSITIVE (NEGATIVE) U Benzodiazepine Level POSITIVE (NEGATIVE) Urine Cocaine NEGATIVE (NEGATIVE) Urine Marijuana (THC) POSITIVE (NEGATIVE) Ethyl Alcohol < 10 (0-10) mg/dL 05/16/19 Range/Units 00:05 WBC (4.0-10.5) K/mm3 RBC (4.1-5.6) M/mm3 Hgb (12.5-18.0) gm/dl Hct (42-50) % MCV (78-100) fl MCH (26-32) pg MCHC (32-36) g/dl RDW (11.5-14.0) % Plt Count (150-450) K/mm3 MPV (6-9.5) fl Gran % (36.0-66.0) % Eos # (Auto) (0-0.5) Absolute Lymphs (auto) (1.0-4.6) Absolute Monos (auto) (0.0-1.3) Lymphocytes % (24.0-44.0) % Monocytes % (0.0-12.0) % Eosinophils % (0.00-5.0) % Basophils % (0.0-0.4) % Absolute Granulocytes (1.4-6.9) Basophils # (0-0.4) Sodium (137-145) mmol/L Potassium (3.5-5.1) mmol/L Chloride (98-107) mmol/L Carbon Dioxide (22-30) mmol/L Anion Gap (5-15) MEQ/L BUN (9-20) mg/dL Creatinine (0.66-1.25) mg/dL Estimated GFR ML/MIN Glucose (74-106) mg/dL Calcium (8.4-10.2) mg/dL Total Bilirubin (0.2-1.3) mg/dL AST (17-59) U/L ALT (0-50) U/L Alkaline Phosphatase (38-126) U/L Serum Total Protein (6.3-8.2) g/dL Albumin (3.5-5.0) g/dL Urine Color YELLOW (YELLOW) Urine Appearance CLEAR (CLEAR) Urine pH 5.0 (5-6) Ur Specific [place] 1.030 (1.005-1.025) Urine Protein NEGATIVE (Negative) Urine Ketones NEGATIVE (NEGATIVE) Urine Blood NEGATIVE (0-5) Hollis/ul Urine Nitrite NEGATIVE (NEGATIVE) Urine Bilirubin NEGATIVE (NEGATIVE) Urine Urobilinogen NEGATIVE (0-1) mg/dL Ur Leukocyte Esterase NEGATIVE (NEGATIVE) Urine WBC (Auto) 0-2 (0-5) /HPF Urine RBC (Auto) NONE (0-2) /HPF U Hyaline Cast (Auto) 3-5 (0-2) /LPF U Epithel Cells (Auto) NONE (FEW) /HPF Urine Bacteria (Auto) NONE (NEGATIVE) /HPF Urine Mucus (Auto) SLIGHT (NEGATIVE) /HPF Urine Culture Reflexed NO (NO) Urine Glucose NEGATIVE (NEGATIVE) mg/dL Salicylates (2-20) mg/dL Urine Opiates Level (NEGATIVE) Ur Methadone (NEGATIVE) Acetaminophen (10-30) ug/ml Urine Barbiturates (NEGATIVE) Ur Phencyclidine (PCP) (NEGATIVE) Urine Amphetamine (NEGATIVE) U Benzodiazepine Level (NEGATIVE) Urine Cocaine (NEGATIVE) Urine Marijuana (THC) (NEGATIVE) Ethyl Alcohol (0-10) mg/dL - Progress Progress: improved Progress Note: 05/17/19 00:30 Spoke with Hanh Drummond, patient's mother. This is a patient has bipolar disorder but has been off of his Depakote medication for multiple years although unknown why as well as opioid use disorder which he takes daily Suboxone. The patient also has been given a diagnosis of ADHD which allows him to be on Adderall and he thinks his symptoms this evening were due to being sleep-deprived from restarting Adderall after being off for a few days, which causes him to sleepwalk. 05/17/19 03:27 Patient evaluated by Dahlia Guallpa at [facility]. Patient is not a candidate for inpatient psychiatric admission and can be discharged to follow- up as an outpatient 05/17/19 03:42 Spoke with Hanh Drummond, patient's mother. Hanh will come and pick up and delivery driver the patient and patient will stay with her in their home in [place], [place]. Hanh will pick up and delivery driver Jemal's things from the patient's grandparents home. Jemal has a physician he can followup his bipolar disorder and opioid use disorder in [place], [place] and fill his prescriptions there. Counseled pt/family regarding: lab results, diagnosis, need for follow-up - Departure Departure Disposition: Home Clinical Impression: Suicide ideation, Elevated blood pressure reading without diagnosis of hypertension Condition: Good Critical Care Time: No Referrals: GO CARRILLO [Primary Care Provider] - 05/17/19 Instructions: Bipolar Disorder (DC), Self-Harm (DC) Additional Instructions: return immediately to the nearest emergency department if he feels overwhelmed, have any thoughts of suicidal or homicidal behavior, have visual hallucinations , having delusional thought process, any periods of lowell or any other concerning signs or symptoms that were not present this emergency room visit for immediate reevaluation in the emergency department.
[2019-05-16] MEDS ORDERED: Adacel Vial IM ONE (23:10)
[2019-05-16 23:49] LABS: BASOPHIL % 0.2 % (0.0-0.4); Basophil (Absolute #) 0.02 (0-0.4); Eosinophil % 5.8 % (0.00-5.0); Eosinophil (Absolute #) 0.53 (0-0.5); Granulocyte Absolute (ANC) 6.61 (1.4-6.9); Granulocytes % 72.5 % (36.0-66.0); Hematocrit 40.1 % (42-50); Hemoglobin 13.9 gm/dl (12.5-18.0); Lymphocyte (Absolute #) 1.28 (1.0-4.6); Lymphocytes % 14.1 % (24.0-44.0); Mean Cell Volume 85.3 fl (78-100); Mean Corpuscular Hemoglobin 29.6 pg (26-32); Mean Corpuscular Hgb Concent. 34.7 g/dl (32-36); Mean Platelet Volume 9.2 fl (6-9.5); Monocyte (Absolute #) 0.67 (0.0-1.3); Monocytes % 7.4 % (0.0-12.0); Platelet Count 236 K/mm3 (150-450); Red Cell Distribution Width 12.6 % (11.5-14.0); White Blood Count 9.1 K/mm3 (4.0-10.5)
[2019-05-17] MEDS ORDERED: Adacel Vial IM ONE
[2019-05-17 00:02] LABS: ALBUMIN 4.3 g/dL (3.5-5.0); ALKALINE PHOSPHATASE 111 U/L (38-126); ANION GAP 11.4 MEQ/L (5-15); BLOOD UREA NITROGEN 16 mg/dL (9-20); CHLORIDE 104 mmol/L (98-107); Carbon Dioxide 27 mmol/L (22-30); Creatinine 1 0.51 mg/dL (0.66-1.25); Glucose 106 mg/dL (74-106); Potassium 3.9 mmol/L (3.5-5.1); SGOT/AST 83 U/L (17-59); SGPT/ALT 37 U/L (0-50); SODIUM 138 mmol/L (137-145); Total Protein 7.6 g/dL (6.3-8.2)
[2019-05-17 00:07] LABS: ACETAMINOPHEN < 10 ug/ml (10-30); ETHYL ALCOHOL < 10 mg/dL (0-10); SALICYLATE < 1.0 mg/dL (2-20)
[2019-05-17 00:22] LABS: Appearance CLEAR (CLEAR); Bilirubin NEGATIVE (NEGATIVE); Blood NEGATIVE Ery/ul (0-5); Glucose NEGATIVE (NEGATIVE); Ketones NEGATIVE (NEGATIVE); Leukocyte Esterase NEGATIVE (NEGATIVE); Mucus SLIGHT /HPF (NEGATIVE); Nitrite NEGATIVE (NEGATIVE); Protein,Urine Dip NEGATIVE (Negative); Urobilinogen NEGATIVE mg/dL (0-1); WBC 0-2 /HPF (0-5)
[2019-05-17 00:29] LABS: Barbiturate,Urine NEGATIVE (NEGATIVE); Benzodiazepine,Urine POSITIVE (NEGATIVE); THC,Urine POSITIVE (NEGATIVE)
[2019-05-17 00:54] LABS: Cocaine,Urine NEGATIVE (NEGATIVE); Methadone,Urine NEGATIVE (NEGATIVE); Opiate,Urine NEGATIVE (NEGATIVE); PCP,Urine NEGATIVE (NEGATIVE)
[2019-05-17 01:10] LABS: Amphetamine,Urine POSITIVE (NEGATIVE)
[2019-05-17] MEDS ORDERED: Nicoderm CQ 21 MG TOP ONE (01:23)
[2019-05-17 06:17] VITALS: BP 118/72; PULSE 84; O2SAT 99
== END 2019-05-17 06:18 | disposition home or self-care (01) ==
LOC: ED 22:50
DX: R45.851 Suicidal ideations (principal); R03.0 Elevated blood-pressure reading, without diagnosis of hypertension; F31.9 Bipolar disorder, unspecified; Z79.891 Long term (current) use of opiate analgesic; F90.9 Attention-deficit hyperactivity disorder, unspecified type
CPT/HCPCS: 36000; 36415; 80053; 80307; 81001; 85025; 90471; 93005; 99284; G0480; G0481; 90715; A9270-GY

== ENCOUNTER 2023-05-15 04:49 | Emergency (ER) | payer OTHER ==
[2023-05-15 05:00] VITALS: TEMP 98.2
[2023-05-15] MEDS ORDERED: BABY ASPIRIN 81 MG CHEW PO ONE (05:56)
[2023-05-15] MEDS ORDERED: Nitrostat 0.4 MG (ED) SL ONE (05:56)
[2023-05-15] MEDS ORDERED: Ativan 1 MG PO ONE (05:57)
[2023-05-15 06:07] VITALS: O2SAT 98
[2023-05-15] MEDS ORDERED: Ativan 1 MG ONE (06:08)
--- NOTE | 2023-05-15 06:13 | ERPHSYRPT ---
<MAGIONEL - Last Filed: 05/15/23 06:36> - History of Present Illness Time Seen by Provider: 05/15/23 06:08 Historian: patient, EMS Exam Limitations: no limitations Patient Subjective Stated Complaint: chest pain above the left breast Triage Nursing Assessment: pt brought in by ambulance, pt alert and oriented x4. Pt c/o left upper chest pain just above the nipple since 1am, describes it as a stabbing pain. Pt was watching tv and trying to go to sleep when the chest pain occured. Pt is very anxious and states, "I'm sure this is all from the meth use but it scared me". Lungs clear, heart tones regular. Pt took crystal meth approx 24 hours ago. Pt has a hx of opiod use but hadn't used in 4 yrs until last night. Physician History: pt had onset chest pain today and relapsed also using Meth. He otherwise has a low cardiac heart score with no fam hx , + hptn mild, Typical cardiac symptoms and hx meth use+, but normal EKG. EMS confirms HX as independent source. Discussed risks/benefit of CBC, CMP, Lipase, Trop, EKG, IV NTG, ASA, BNP, CPK, Mary, ativan, with pt and he wishes to proceed - these were ordered and results discussed. Pt was turned over to Dr. Childers at change of shift after discussion of pending labs, introduction for final interpretation treatment adn disposition. Timing/Duration: today, hour(s) Activities at Onset: emotional stress Location: substernal Severity of Pain-Max: moderate Severity of Pain-Current: moderate Modifying Factors: Improves With: nothing Associated Symptoms: shortness of breath Prior Chest Pain/Cardiac Workup: no prior chest pain Nitro Today/Relief: 0.4 mg x 1, provided by ED Aspirin Treatment Today: 81 mg x 4, provided by ED Allergies/Adverse Reactions: lidocaine Allergy (Unknown, Verified 05/15/23 05:11) Hives Home Medications: Dextroamphetamine/Amphetamine [Amphetamine Salts 30 mg Tablet] 30 mg PO BID 11/07/17 [History] buprenorphine HCL [Buprenorphine HCl] 2 mg SL BID 11/07/17 [History] PARoxetine HCL [Paxil] 40 mg PO DAILY 11/17/17 [History] Sertraline HCl 20 mg pe PO HS 05/15/23 [History] Ziprasidone 20 mg [Geodon 20 MG Capsule] 40 mg PO DAILY 05/15/23 [History] Hx Tetanus, Diphtheria Vaccination/Date Given: (unknown) Hx Influenza Vaccination/Date Given: No Hx Pneumococcal Vaccination/Date Given: No Travel Risk - International Travel Have you traveled outside of the country in past 3 weeks: No - Coronavirus Screening Are you exhibiting any of the following symptoms?: No Close contact with a COVID-19 positive Pt in past 14-21 Days: No - Vaccine Status Have you recieved a Covid-19 vaccination: Yes Ship Manager: Unknown - Vaccination Dates Dates if Unknown: . - Review of Systems Constitutional: No Fever, No Chills Eyes: No Symptoms Ears, Nose, & Throat: No Symptoms Respiratory: Dyspnea, No Cough Cardiac: Chest Pain, No Edema, No Syncope Abdominal/Gastrointestinal: No Abdominal Pain, No Nausea, No Vomiting, No Diarrhea Genitourinary Symptoms: No Dysuria Musculoskeletal: No Back Pain, No Neck Pain Skin: No Rash Neurological: No Dizziness, No Focal Weakness, No Sensory Changes Psychological: No Symptoms Endocrine: No Symptoms All Other Systems: Reviewed and Negative - Past Medical History Pertinent Past Medical History: Yes Neurological History: No Pertinent History ENT History: No Pertinent History Cardiac History: No Pertinent History Respiratory History: No Pertinent History Endocrine Medical History: No Pertinent History Musculoskeletal History: No Pertinent History GI Medical History: No Pertinent History History: No Pertinent History Psycho-Social History: Anxiety, Attention Deficit Disorder, Bipolar, Depression, Other Male Reproductive Disorders: No Pertinent History Other Medical History: hx of opioid addiction, currently prescribed bupenorphine - Past Surgical History Past Surgical History: No Other Surgical History: UNABLE TO ASSESS, PT SEDATED UPON ADMISSION - Social History Smoking Status: Former smoker How long have you smoked: years Exposure to second hand smoke: No Drug Use: methamphetamines Patient Lives Alone: No - Physical Exam General Appearance: no apparent distress, alert Eye Exam: PERRL/EOMI, eyes nml inspection Ears, Nose, Throat Exam: normal ENT inspection, moist mucous membranes Neck Exam: normal inspection, non-tender, supple, full range of motion Respiratory Exam: normal breath sounds, lungs clear, No respiratory distress Cardiovascular Exam: regular rate/rhythm, normal heart sounds Gastrointestinal/Abdomen Exam: soft, No tenderness, No mass Back Exam: normal inspection, No CVA tenderness, No vertebral tenderness Extremity Exam: normal inspection, normal range of motion Neurologic Exam: alert, oriented x 3, cooperative, normal mood/affect, sensation nml, No motor deficits Skin Exam: normal color, warm, dry SpO2 Interpretation: normal SpO2: 98 O2 Delivery: Room Air - Course Nursing assessment & vital signs reviewed: Yes EKG Interpreted by Me: Sinus Rhythm, NORMAL AXIS, NORMAL INTERVALS, NORMAL QRS, NORMAL ST-T - Radiology Exams Chest X-ray Interpretation: Reviewed by me, Other (intestitial changes and LISETTE nodule) - Progress Progress: improved, re-examined Air Movement: good Blood Culture(s) Obtained: No Antibiotics given: No Counseled pt/family regarding: lab results, diagnosis, need for follow-up, rad results Medical Desision Making - Independent Historian Additional History obtained from: EMS - Diagnostic Testing Diagnostic test were ordered, analyzed, and reviewed by me: Yes Radiological Interpretation: Reviewed by me - Risk of complications The pt has a mod risk of morbidity or mortality based on: Need for prescription drug management The pt has a high risk of morbidity or mortality based on: Decision regarding hospitilization or escalation of hosp level of care - Departure Clinical Impression: LISETTE lung nodule, Chest pain, Overdose of sympathomimetic agent Condition: Good Critical Care Time: No Referrals: GO CARRILLO [Primary Care Provider] - Follow up/PCP as directed Instructions: Chest Pain (DC), Pulmonary nodule <VLAD CHILDERS - Last Filed: 05/15/23 07:28> - Nursing Vital Signs Nursing Vital Signs: Initial Vital Signs Pulse Rate 96 H 05/15/23 04:53 Respiratory Rate 21 05/15/23 04:53 Blood Pressure 163/115 05/15/23 04:53 O2 Sat by Pulse Oximetry 99 05/15/23 04:53 Pain Scale Pain Intensity 3 Ordered Tests: Active Orders 24 hr Category Date Time Status Marketing Program Coordinator STAT Care 05/15/23 05:57 Active EKG-ER Only STAT Care 05/15/23 05:56 Active IV Insertion STAT Care 05/15/23 05:56 Active Pulse Oximetry (ED) STAT Care 05/15/23 05:56 Active CHEST 1 VIEW (PORTABLE) Stat Exams 05/15/23 05:16 Completed AMYLASE Stat Lab 05/15/23 06:28 Completed CBC W DIFF Stat Lab 05/15/23 06:28 Completed CMP Stat Lab 05/15/23 06:28 Completed D-DIMER QUANTITATIVE Stat Lab 05/15/23 06:28 Completed LIPASE Stat Lab 05/15/23 06:28 Completed Lactic Acid Stat Lab 05/15/23 06:35 Completed NT PRO BNPII Stat Lab 05/15/23 06:28 Completed TROPONIN Q4H Lab 05/15/23 06:28 Completed TROPONIN Q4H Lab 05/15/23 10:00 Ordered TROPONIN Q4H Lab 05/15/23 14:00 Ordered Medication Summary Discontinued Medications Generic Name Dose Route Start Last Admin Trade Name Maynorq PRN Reason Stop Dose Admin Aspirin 324 mg 05/15/23 05:56 05/15/23 06:10 Aspirin 81 Mg Tab.Chew PO 05/15/23 05:57 324 mg STAT ONE Administration Lorazepam 1 mg 05/15/23 05:57 05/15/23 06:09 Lorazepam 1 Mg Tablet PO 05/15/23 05:58 1 mg STAT ONE Administration Lorazepam Confirm 05/15/23 06:08 Lorazepam 1 Mg Tablet Administered 05/15/23 06:09 Dose 1 mg .ROUTE .STK-MED ONE Nitroglycerin 0.4 mg 05/15/23 05:56 05/15/23 06:09 Nitroglycerin 0.4 Mg (Ed) 0.4 Mg Tab.Subl SL 05/15/23 05:57 0.4 mg STAT ONE Administration Lab/Rad Data: Laboratory Result [facility] 05/15/23 06:28 05/15/23 06:28 Laboratory Results 05/15/23 05/15/23 05/15/23 Range/Units 06:35 06:28 06:28 WBC (4.0-10.5) x10^3/uL RBC (4.1-5.6) x10^6/uL Hgb (12.5-18.0) g/dL Hct (42-50) % MCV (78-100) fL MCH (26-32) pg MCHC (32-36) g/dL RDW (11.5-14.0) % Plt Count (150-450) x10^3/uL MPV (7.5-11.0) fL Gran % (36.0-66.0) % Immature Gran % (Auto) (0.00-0.4) % Nucleat RBC Rel Count (0.00-0.1) % Eos # (Auto) (0-0.5) x10^3/uL Immature Gran # (Auto) (0.00-0.03) x10^3u/L Absolute Lymphs (auto) (1.0-4.6) x10^3/uL Absolute Monos (auto) (0.0-1.3) x10^3/uL Absolute Nucleated RBC (0.00-0.01) x10^3u/L Lymphocytes % (24.0-44.0) % Monocytes % (0.0-12.0) % Eosinophils % (0.00-5.0) % Basophils % (0.0-0.4) % Absolute Granulocytes (1.4-6.9) x10^3/uL Basophils # (0-0.4) x10^3/uL D-Dimer 0.26 (0.0-0.50) mg/L Sodium (137-145) mmol/L Potassium (3.5-5.1) mmol/L Chloride (98-107) mmol/L Carbon Dioxide (22-30) mmol/L Anion Gap (5-15) MEQ/L BUN (9-20) mg/dL Creatinine (0.66-1.25) mg/dL Estimated GFR ML/MIN Glucose (74-106) mg/dL Lactic Acid 1.1 (0.4-2.0) Calcium (8.4-10.2) mg/dL Total Bilirubin (0.2-1.3) mg/dL AST (17-59) U/L ALT (0-50) U/L Alkaline Phosphatase (38-126) U/L Troponin I < 0.012 (0.000-0.034) ng/mL NT-Pro-B Natriuret Pep (<300) pg/mL Serum Total Protein (6.3-8.2) g/dL Albumin (3.5-5.0) g/dL Amylase (30-110) U/L Lipase (23-300) U/L 05/15/23 05/15/23 Range/Units 06:28 06:28 WBC 10.0 (4.0-10.5) x10^3/uL RBC 5.12 (4.1-5.6) x10^6/uL Hgb 14.9 (12.5-18.0) g/dL Hct 44.4 (42-50) % MCV 86.7 (78-100) fL MCH 29.1 (26-32) pg MCHC 33.6 (32-36) g/dL RDW 12.3 (11.5-14.0) % Plt Count 285 (150-450) x10^3/uL MPV 9.5 (7.5-11.0) fL Gran % 75.2 H (36.0-66.0) % Immature Gran % (Auto) 0.5 H (0.00-0.4) % Nucleat RBC Rel Count 0.0 (0.00-0.1) % Eos # (Auto) 0.49 (0-0.5) x10^3/uL Immature Gran # (Auto) 0.05 H (0.00-0.03) x10^3u/L Absolute Lymphs (auto) 1.46 (1.0-4.6) x10^3/uL Absolute Monos (auto) 0.44 (0.0-1.3) x10^3/uL Absolute Nucleated RBC 0.00 (0.00-0.01) x10^3u/L Lymphocytes % 14.6 L (24.0-44.0) % Monocytes % 4.4 (0.0-12.0) % Eosinophils % 4.9 (0.00-5.0) % Basophils % 0.4 (0.0-0.4) % Absolute Granulocytes 7.52 H (1.4-6.9) x10^3/uL Basophils # 0.04 (0-0.4) x10^3/uL D-Dimer (0.0-0.50) mg/L Sodium 138 (137-145) mmol/L Potassium 4.3 (3.5-5.1) mmol/L Chloride 101 (98-107) mmol/L Carbon Dioxide 25 (22-30) mmol/L Anion Gap 16.9 H (5-15) MEQ/L BUN 16 (9-20) mg/dL Creatinine 0.62 L (0.66-1.25) mg/dL Estimated GFR > 60.0 ML/MIN Glucose 114 H (74-106) mg/dL Lactic Acid (0.4-2.0) Calcium 9.8 (8.4-10.2) mg/dL Total Bilirubin 0.30 (0.2-1.3) mg/dL AST 56 (17-59) U/L ALT 21 (0-50) U/L Alkaline Phosphatase 88 (38-126) U/L Troponin I (0.000-0.034) ng/mL NT-Pro-B Natriuret Pep < 20.0 (<300) pg/mL Serum Total Protein 8.1 (6.3-8.2) g/dL Albumin 4.8 (3.5-5.0) g/dL Amylase 68 (30-110) U/L Lipase 39 (23-300) U/L - Departure Critical Care Time: No
[2023-05-15 06:36] LABS: Absolute Neutrophil Ct (ANC) 7.52 x10^3/uL (1.4-6.9); BASOPHIL % 0.4 % (0.0-0.4); Basophil (Absolute #) 0.04 x10^3/uL (0-0.4); Eosinophil % 4.9 % (0.00-5.0); Eosinophil (Absolute #) 0.49 x10^3/uL (0-0.5); Hematocrit 44.4 % (42-50); Hemoglobin 14.9 g/dL (12.5-18.0); IMMATURE GRAN # 0.05 x10^3u/L (0.00-0.03); IMMATURE GRAN % 0.5 % (0.00-0.4); Lymphocyte (Absolute #) 1.46 x10^3/uL (1.0-4.6); Lymphocytes % 14.6 % (24.0-44.0); Mean Cell Volume 86.7 fL (78-100); Mean Corpuscular Hemoglobin 29.1 pg (26-32); Mean Corpuscular Hgb Concent. 33.6 g/dL (32-36); Mean Platelet Volume 9.5 fL (7.5-11.0); Monocyte (Absolute #) 0.44 x10^3/uL (0.0-1.3); Monocytes % 4.4 % (0.0-12.0); Neutrophil % 75.2 % (36.0-66.0); Platelet Count 285 x10^3/uL (150-450); Red Blood Count 5.12 x10^6/uL (4.1-5.6); Red Cell Distribution Width 12.3 % (11.5-14.0)
[2023-05-15 07:07] LABS: ALBUMIN 4.8 g/dL (3.5-5.0); ALKALINE PHOSPHATASE 88 U/L (38-126); AMYLASE 68 U/L (30-110); ANION GAP 16.9 MEQ/L (5-15); BLOOD UREA NITROGEN 16 mg/dL (9-20); CHLORIDE 101 mmol/L (98-107); Calcium 9.8 mg/dL (8.4-10.2); Carbon Dioxide 25 mmol/L (22-30); Creatinine 1 0.62 mg/dL (0.66-1.25); EST GLOMERULAR FILTRATION RATE > 60.0 ML/MIN; Glucose 114 mg/dL (74-106); LIPASE 39 U/L (23-300); NT PRO BNPII < 20.0 pg/mL (<300); Potassium 4.3 mmol/L (3.5-5.1); SGOT/AST 56 U/L (17-59); SGPT/ALT 21 U/L (0-50); SODIUM 138 mmol/L (137-145); Total Protein 8.1 g/dL (6.3-8.2)
--- NOTE | 2023-05-15 07:22 | XRAY ---
Indication: Chest pain. Comparison: None Portable chest demonstrates left midlung calcified granuloma. Remaining heart and lungs unremarkable. Bony thorax intact.
[2023-05-15 07:40] VITALS: BP 140/74; PULSE 80; RESP 20
== END 2023-05-15 07:42 | disposition home or self-care (01) ==
LOC: ED 04:49
DX: R91.1 Solitary pulmonary nodule (principal); R07.9 Chest pain, unspecified; T44.901A Poisoning by unspecified drugs primarily affecting the autonomic nervous system, accidental (unintentional), initial encounter; Z79.891 Long term (current) use of opiate analgesic; Z79.899 Other long term (current) drug therapy
CPT/HCPCS: 36000; 36415; 71045; 80053; 82150; 83605; 83690; 83880; 84484; 85025; 85379; 93005; 93041; 94760; 99284; A9270-GY